=== PATIENT | female | born 1935 | race Caucasian/White ===

== ENCOUNTER 2018-01-02 20:22 | Emergency (ER) | payer OTHER ==
[~2018-01-02] VITALS: Ht 167.6 cm; Wt 90.7 kg
[~2018-01-02 20:22] MED LIST: ADULT LOW DOSE81 MG PO; ARIXTRA; ARIXTRA SQ; ASPIRIN325 PO; AZITHROMYCIN 2250 MG PO; BENADRYL25 MG PO; FLUZONE 2045 MCG/011; IRON; IRON PO; MOBIC15 MG PO; NORCO 5-325 TA1 EACH; OXYIR5 MG; PNEUMOVAX25 MCG/0.5; PREDNISONE 20 M20 M1 PO; SOF-LAX100 MG PO; VENTOLIN HFA INH8 GM IH
[2018-01-02] MEDS ORDERED: NASOCORT (20:37)
[2018-01-02] MEDS ORDERED: TUMS PO (20:37)
[2018-01-02] MEDS ORDERED: ASPIR 8181 MG PO (20:37)
[2018-01-02] MEDS ORDERED: FLEXERIL PO (21:31)
[2018-01-02] MEDS ORDERED: IBUPROFEN 800800 M1 PO (21:32)
[2018-01-02 21:46] VITALS: BP 158/74
== END 2018-01-02 21:47 | disposition home or self-care (01) ==
LOC: M.ERS 20:22
DX: S40.012A Contusion of left shoulder, initial encounter (principal); Z88.2 Allergy status to sulfonamides; Z88.8 Allergy status to other drugs, medicaments and biological substances; W10.9XXA Fall (on) (from) unspecified stairs and steps, initial encounter; Y93.89 Activity, other specified; Y92.89 Other specified places as the place of occurrence of the external cause; Y99.8 Other external cause status

== ENCOUNTER → 2018-11-26 | Outpatient (CLI) | payer OTHER ==
[~2018-11-26] MED LIST changes: +ASPIR 8181 MG PO; +FLEXERIL PO; +IBUPROFEN 800800 M1 PO; +NASOCORT; +TUMS PO
== END ==
LOC: M.LAB 12:54
DX: Z01.82 Encounter for allergy testing (principal); M16.11 Unilateral primary osteoarthritis, right hip

== ENCOUNTER 2019-05-19 06:12 | Inpatient (IN) | payer OTHER ==
[~2019-05-19] VITALS: Ht 165.1 cm; Wt 86.2 kg
[~2019-05-19 06:12] MED LIST changes: +CALCIUM 500 +1 EAC5 PO; +LISINOPRIL10 MG PO
[2019-05-19 07:13] VITALS: BP 143/70
[2019-05-19 13:24] VITALS: BP 121/52
[2019-05-19 16:00] VITALS: BP 130/69
--- NOTE | 2019-05-19 18:52 | NUR ---
PATIENT ARRIVED TO UNIT AT APPROX 1140. ALERT AND ORIENTED X4. ASSESSMENT COMPLETED AND CHARTED. VSS ON ROOM AIR. MINIMAL COMPLAINTS OF PAIN MANAGED WITH ORAL PAIN MEDICATION. FLUIDS AND ANTIBIOTICS INFUSED ORDERED. PATIENT UP WITH MINIMAL ASSIST TO BEDSIDE COMMODE, VOIDING WITHOUT ISSUE. PATIENT DOING VERY WELL GETTING UP AND LOOKING FORWARD TO GOING HOME TOMORROW. FALL PRECAUTIONS IN PLACE. CALL LIGHT WITHIN REACH AND USES APPROPRIATELY. HOURLY ROUNDS COMPLETED. WILL CONTINUE TO MONITOR.
[2019-05-19 20:14] VITALS: BP 143/59
[2019-05-20] VITALS: BP 126/41
[2019-05-20 04:00] VITALS: BP 124/46
[2019-05-20 05:14] LABS: ABSOLUTE LYMPHOCYTES 0.8 thou/uL (0.8-5.3); ABSOLUTE MONOCYTES 1.1 thou/uL (0.0-1.2); ABSOLUTE NEUTROPHILS 8.2 thou/uL (1.6-8.1); BASOPHILS 0.2 %; HEMATOCRIT 33.2 % (37.0-47.0); HEMOGLOBIN 11.6 gm/dL (12.0-15.0); LYMPHOCYTES 7.5 %; MCH 32.5 pg (26.0-34.0); MCHC 34.9 g/dL (28.0-37.0); MONOCYTES 11.2 %; MPV 9.1 fl. (7.2-11.1); NUCLEATED RBCS 0 /100WBC; PLATELET COUNT* 185 thou/uL (150-400); POLYS 81.1 %; RBC 3.57 mil/uL (4.20-5.00); RDW-CV 14.5 % (10.5-14.5); WBC 10.1 thou/uL (4.0-11.0)
[2019-05-20 05:34] LABS: CALCIUM 8.4 mg/dL (8.5-10.1); CREATININE 0.8 mg/dL (0.6-1.3); MAGNESIUM 1.5 mg/dL (1.8-2.4)
--- NOTE | 2019-05-20 05:39 | NUR ---
PATIENT WAS ABLE TO REST COMFORTABLY THROUGH NIGHT. SHE DID NOT WANT HER SCHEDULED TRAMADOL. FIRST DOSE OF OXYCODONE 5MG WAS NOT BRINGING HER PAIN DOWN SO GAVE HER 10MG AND SHE WAS THEN RATING HER PAIN 4/5 AFTER ASSESSMENT. NO WORSENING OF SYMPTOMS TO REPORT. SHE HAS HER DAUGHTER WITH HER SHE HELPED HER WITH GETTING UP TO BATHROOM.
[2019-05-20 07:10] VITALS: BP 102/46
[2019-05-20 16:00] VITALS: BP 109/44
--- NOTE | 2019-05-20 16:00 | NUR ---
PT.IN BED. ALERT AND ORIENTED. SHE SAID SHE LIVES WITH HER . HER DAUGHTER WILL ALSO BE STAYING WITH HER TO HELP. SHE HAS A WALKER. SHE HOPES TO DO OUTPT.THERAPY AT DISCHARGE. CALL IN TO OFFICE TO CLARIFY PRESCRIPTION FOR ELIQUIS. PT.SAID SHE IS NORMALLY INDEPENDENT. HPES TO GO HOME TOMORROW.
--- NOTE | 2019-05-20 17:32 | NUR ---
PT REMAINED ALERT AND ORIENTED. PT RESTING IN ROOM. FALL RISK PRECAUTIONS IN PLACE. PAIN MEDS GIVEN ORDERED. PT WILL HAVE PT AT 0730 IN AM. HOURLY ROUNDING COMPLETED. WILL CONTINUE TO MONITOR.
[2019-05-20 19:30] VITALS: BP 123/58
--- NOTE | 2019-05-20 21:54 | NUR ---
INITAL ASSESMENT COMPLETED AT 1930. PT RESTING QUIETLY IN BED AT THAT TIME. PT'S DAUGHTER AT BEDSIDE ASSISTING WITH CARE. CALL LIGHT IN REACH, PT USING APPROPRIATELY.
[2019-05-21 05:01] LABS: HEMATOCRIT 34.7 % (37.0-47.0); HEMOGLOBIN 11.7 gm/dL (12.0-15.0)
[2019-05-21 08:10] VITALS: BP 112/45
[2019-05-21] MEDS ORDERED: DOK PLUS TABLE1 EACH PO (10:39)
[2019-05-21] MEDS ORDERED: ELIQUIS5 MG PO (10:39)
[2019-05-21 12:45] VITALS: BP 112/45
--- NOTE | 2019-05-21 12:56 | NUR ---
PT.TO DISCHARGE HOME WITH SELF GUIDED CARE (NO P.T.) EXPLAINED THIS TO PT. SHE IS AGREEABLE TO NO HOME HEALTH. ELIQUIS PRESCRIPTION CALLED IN WRITTEN TO PT.'S PHARMACY [facility]. COPAY IS $21.98. INFORMED PT. SISTER WILL BE TRANSPORTING HER HOME.
[2019-05-21] MEDS ORDERED: NORCO 5-325 TA1 EAC1 PO (13:31)
[2019-05-21] MEDS ORDERED: OXYCODONE HCL 55 MG PO (13:32)
--- NOTE | 2019-05-21 17:18 | NUR ---
ASSUMED CARE OF PATIENT AT APPROX 0730. ALERT AND ORIENTED X4. ASSESSMENT COMPLETED AND CHARTED. VSS ON ROOM AIR. PAIN MANAGED WITH ORAL PAIN MEDICATION. PATIENT UP WITH GAIT BELT AND WALKER TO BATHROOM. WORKED WELL WITH THERAPIES TODAY AND PROGRESSED TOWARD GOALS. PATIENT DISCHARGED AT 1650 WITH ALL PERSONAL BELONGINGS, PRESCRIPTIONS AND DISCHARGE INFORMATION.
--- NOTE | 2019-05-26 10:59 | OP ---
[address] [address] OPERATIVE REPORT Name: ERICACOREY Room: [address] IN M.R.#: [id number] Admission: 05/19/19 Attend Phys: Shira Miller Discharge: 05/21/19 Date of : 39 Report #: [id number] THIS REPORT FOR: //name// CC: Rashawn Norton DATE OF SERVICE: 05/19/2019 PREOPERATIVE DIAGNOSIS: Degenerative joint disease of the right hip. POSTOPERATIVE DIAGNOSIS: Degenerative joint disease of the right hip. PROCEDURES: Right total hip arthroplasty utilizing the anterior supine intramuscular approach with Biomet Taperloc total hip system following components: A. A size 52 mm outside diameter porous coated limited whole G7 acetabular shell. B. A size 12 high offset porous coated Microplasty Taperloc femoral stem. C. A 36 mm ceramic head with a standard neck adapter. D. A high wall acetabular polyethylene liner. SURGEON: Rashawn Maldonado DO OIL PAINT SHADER: Alaina Maldonado DO SECOND NETWORK DESKTOP SUPPORT SPECIALIST: Karuna Ramirez APRN ANESTHESIA: General endotracheal anesthetic. ESTIMATED BLOOD LOSS: 150 mL. COMPLICATIONS: None. DRAINS: None. ANTIBIOTICS: Ancef 2 g IV piggyback. INDICATIONS FOR SURGERY: Gross pathology, surgeon's inspection of the hip revealed eburnated bone, the femoral head and the acetabulum with osteophytic lipping, subchondral sclerosis, normal appearing joint effusion, hypertrophic synovitis. SURGERY IN DETAIL: The patient was taken to the operating suite, placed on the operating table in supine position. She was given benefit of a general [facility] [address] [facility] [address] OPERATIVE REPORT Name: COREY MALDONADO TRAVIS Room: [address] M.R.#: [id number] Admission: 05/19/19 Attend Phys: Shira Miller Discharge: 05/21/19 Date of : 39 Report #: [id number] endotracheal anesthetic. Following this, the pelvis and bilateral lower extremities were sterilely prepped and draped with Hibiclens scrub followed by alcohol rinse and ChloraPrep scrub x 2 and draped free in usual sterile fashion. Surgery began with the pre-injection of the tissues with pain cocktail through each layer. The initial incision began 2 fingerbreadths distal, 2 fingerbreadths lateral to the ASIS of the right hip. This was carried down through skin and subcutaneous tissue and approximately 10 cm in length. This was carried down to the level of the tensor fascia. The tensor fascia muscle fascia was then split in line with the skin incision and muscles teased off the fascia medially and retracted laterally. Medial fascia was then split. Circumflex vessels were isolated and cauterized with Aquamantys and transected with electrocautery with good hemostasis being obtained. Next, the indirect head of the rectus was elevated off the anterior capsule and retracted with #9 retractor. Superior and inferior capsule were isolated, #5 and #7 retractors were placed symmetrically. The standard anterior capsulectomy was then performed. Femoral neck osteotomy was performed in the appropriate level as determined on preoperative templating and intraoperative evaluation. This was done in napkin ring fashion with an oscillating saw. Head and neck were removed. The capsule was then released off the proximal femur, inferiorly to the superior portion of the lesser trochanter and superiorly to the mid portion of the greater trochanter. I was able to bring the femur in a good workable position with a bone hook. I then placed the femur posterior to the acetabulum with retractors around the acetabulum for excellent visualization. Labrum was excised. Osteophytic lipping was removed with rongeur. Next, the acetabulum was reamed, beginning with a 47 mm reamer up to a 51 mm reamer with good punctate bleeding over 80% of acetabular floor and reaming appeared to be concentric on trialing. The final 52 mm outside diameter shell was then impacted in the prepared acetabulum until it was well seated in position. It was very stable, but further fixated with two 6.5 cancellous screws of appropriate length (25 mm, 35 mm). Next, a high wall liner was placed with the high wall being in position posteriorly and slightly inferiorly and was impacted and locked in position. The femur was then brought in good workable position. Box osteotome was used to open proximal femur and rat tail rasp was used to sound the canal. The femur was then broached up to a 12, which seemed to have excellent fit and fill. A trial reduction was then performed with standard and high offset necks with multiple neck lengths. The high offset reproduced the normal offset as determined on intraoperative evaluation and preoperative templating. The standard neck length brought the leg length equal to the other side, referencing the medial malleolus and the heel. I also checked size, positioning and length with the C-arm, which looked anatomic. The hip was then placed through full range of motion with knee to chest figure 4 cross body motion and full external rotation of the hip with knee in full extension without dislocation. This hip was dislocated and the final implants were placed. Thorough irrigation was carried out and final reduction was performed. Final x-rays were obtained. Deep tissue had been injected with pain cocktail. PRP was slowly sprayed in the hip and allowed to gel for 5 minutes. The tensor [facility] [address] [place] [address] OPERATIVE REPORT Name: COREY MALDONADO Room: [address] M.R.#: [id number] Admission: 05/19/19 Attend Phys: Shira Miller Discharge: 05/21/19 Date of : 39 Report #: [id number] fascia muscle fascia was then closed with #1 Vicryl suture in running locking stitch. Subcutaneous tissue was closed with 2-0 Vicryl suture in simple inverted interrupted fashion. Skin reapproximated with running subcuticular stitch of 3-0 Monocryl and Dermabond skin glue. Sterile dressing of Mepilex and thigh high DANIEL hose were applied. The patient tolerated the procedure well and was transferred to recovery room in stable condition. <ELECTRONICALLY SIGNED> By: Anthony Stephens DO 05/26/19 1059 0931 [id number] Maldonado DO /grey
== END 2019-05-21 16:50 | disposition home or self-care (01) | DRG 470 ==
LOC: M.TBA 06:12 → M.ORTHSURG 06:12 → M.PRE 06:25 → M.ORTHSURG 11:50 → M.PRE 12:13 → M.ORTHSURG 05-21 16:50
PROVIDERS: Family Medicine; Orthopaedic Surgery; ADMIT Internal Medicine
PROC: 0SR90JZ Replacement of Right Hip Joint with Synthetic Substitute, Open Approach (ICD-10-PCS; principal; 2019-05-19)
DX: M16.11 Unilateral primary osteoarthritis, right hip (principal); Z96.642 Presence of left artificial hip joint; Z96.653 Presence of artificial knee joint, bilateral; I10 Essential (primary) hypertension; E83.42 Hypomagnesemia; Z79.82 Long term (current) use of aspirin; Z88.8 Allergy status to other drugs, medicaments and biological substances; Z91.018 Allergy to other foods; Z90.49 Acquired absence of other specified parts of digestive tract; Z79.899 Other long term (current) drug therapy

== ENCOUNTER → 2019-05-26 | Outpatient (CLI) | payer OTHER ==
[~2019-05-26] MED LIST changes: +DOK PLUS TABLE1 EACH PO; +ELIQUIS5 MG PO; +NORCO 5-325 TA1 EAC1 PO; +OXYCODONE HCL 55 MG PO
== END ==
LOC: M.CT 15:00
DX: R06.00 Dyspnea, unspecified (principal); R21 Rash and other nonspecific skin eruption; I70.0 Atherosclerosis of aorta; N28.1 Cyst of kidney, acquired; I48.91 Unspecified atrial fibrillation; M85.88 Other specified disorders of bone density and structure, other site; I10 Essential (primary) hypertension; E78.5 Hyperlipidemia, unspecified; Z68.30 Body mass index [BMI] 30.0-30.9, adult

== ENCOUNTER 2020-10-20 13:10 | Emergency (ER) | payer OTHER ==
[~2020-10-20] VITALS: Ht 165.1 cm; Wt 83.9 kg
[2020-10-20] MEDS ORDERED: CHILDREN'S ASPI81 MG PO (13:41)
[2020-10-20] MEDS ORDERED: B12 ACTIVE1000 MCG PO (13:41)
[2020-10-20 14:08] LABS: ABSOLUTE BASOPHILS 0.1 thou/uL (0.0-0.2); ABSOLUTE EOSINOPHILS 0.6 thou/uL (0.0-0.7); ABSOLUTE LYMPHOCYTES 1.4 thou/uL (0.8-5.3); ABSOLUTE MONOCYTES 1.5 thou/uL (0.0-1.2); ABSOLUTE NEUTROPHILS 7.3 thou/uL (1.6-8.1); BASOPHILS 1.4 %; EOSINOPHILS 5.7 %; HEMATOCRIT 45.9 % (37.0-47.0); HEMOGLOBIN 15.5 gm/dL (12.0-15.0); LYMPHOCYTES 13.2 %; MCH 31.1 pg (26.0-34.0); MCHC 33.8 g/dL (28.0-37.0); MCV 91.9 fL (80.0-100.0); MONOCYTES 13.3 %; MPV 8.3 fl. (7.2-11.1); NUCLEATED RBCS 0 /100WBC; PLATELET COUNT* 264 thou/uL (150-400); POLYS 66.4 %; RDW-CV 14.5 % (10.5-14.5); WBC 10.9 thou/uL (4.0-11.0)
[2020-10-20 14:20] LABS: APTT 27.8 Seconds (25.0-31.3); PROTIME 10.7 Seconds (9.20-11.50)
[2020-10-20 14:47] LABS: CALCIUM 8.8 mg/dL (8.5-10.1); CREATININE 1.2 mg/dL (0.6-1.3); POTASSIUM 4.4 mmol/L (3.5-5.1)
[2020-10-20 14:58] LABS: ALBUMIN 3.3 g/dL (3.4-5.0); TOTAL BILIRUBIN 1.1 mg/dL (<0.1-1.0); TOTAL PROTEIN 6.9 g/dL (6.4-8.2)
[2020-10-20] MEDS ORDERED: ZPAK PO (14:58)
[2020-10-20] MEDS ORDERED: PREDNISONE 20 M20 M1 PO (14:58)
[2020-10-20] MEDS ORDERED: ZOFRAN ODT4 MG SUBLING (14:58)
[2020-10-20 15:25] VITALS: BP 125/48
--- NOTE | 2020-10-20 16:20 | EKG ---
[place] [address] ELECTROCARDIOGRAM REPORT Name: COREY MALDONADO Room: [facility]#: [id number] Admission: 10/20/20 Attend Phys: Discharge: 10/20/20 Date of : 39 Date of Service: 10/20/20 1343 Report #: [id number] THIS REPORT FOR: //name// [facility] ED Test Date: 2020-10-20 Test Time: 13:43:20 Pat Name: COREY MALDONADO Department: Room: Gender: F Coiler: : 1935 Requested By: Sarath Marlow Order Number: [id number] MD: Rashawn Charlton Measurements Intervals [place] Rate: 83 P: 84 [place]: 181 QRS: 49 QRSD: 94 T: 89 QT: 357 QTc: 420 Interpretive Statements Sinus rhythm Consider anterior infarct Compared to ECG 11/26/2014 23:37:15 Ventricular premature complex(es) no longer present Electronically Signed On 10-20-2020 16:19:59 EMERGENCY CARE TECH by Rashawn Charlton [email or web address] <ELECTRONICALLY SIGNED> By: Rashawn Charlton MD, [facility] 10/20/20 1619 1343 1343 Rashawn Charlton MD, [facility] /EPI
== END 2020-10-20 15:27 | disposition home or self-care (01) ==
LOC: M.ERS 13:10
PROVIDERS: Family Medicine
DX: U07.1 COVID-19 (principal); R53.1 Weakness; I10 Essential (primary) hypertension; R79.1 Abnormal coagulation profile; Z79.899 Other long term (current) drug therapy; Z88.2 Allergy status to sulfonamides; Z91.018 Allergy to other foods; Z88.8 Allergy status to other drugs, medicaments and biological substances

== ENCOUNTER 2020-10-21 10:06 | Inpatient (IN) | payer OTHER ==
[~2020-10-21] VITALS: Ht 165.1 cm; Wt 81.6 kg
[~2020-10-21 10:06] MED LIST changes: +B12 ACTIVE1000 MCG PO; +CHILDREN'S ASPI81 MG PO; +ZOFRAN ODT4 MG SUBLING; +ZPAK PO
[2020-10-21 10:17] VITALS: BP 160/63
[2020-10-21 10:33] LABS: HEMATOCRIT 39.4 % (37.0-47.0); MCH 31.2 pg (26.0-34.0); MCV 91.7 fL (80.0-100.0); MPV 8.3 fl. (7.2-11.1); NUCLEATED RBCS 0 /100WBC; PLATELET COUNT* 231 thou/uL (150-400); RDW-CV 13.9 % (10.5-14.5); WBC 10.1 thou/uL (4.0-11.0)
[2020-10-21 10:37] LABS: HEMOGLOBIN 13.4 gm/dL (12.0-15.0)
[2020-10-21 10:52] LABS: APTT 26.5 Seconds (25.0-31.3); PROTIME 10.4 Seconds (9.20-11.50)
[2020-10-21 11:20] LABS: CALCIUM 8.7 mg/dL (8.5-10.1); CREATININE 1.4 mg/dL (0.6-1.3)
[2020-10-21 11:22] LABS: ABSOLUTE LYMPHOCYTES 0.9 thou/uL (0.8-5.3); ABSOLUTE MONOCYTES 0.1 thou/uL (0.0-1.2); ABSOLUTE NEUTROPHILS 9.1 thou/uL (1.6-8.1); PLATELET ESTIMATE ADEQUATE
[2020-10-21 11:25] LABS: ALBUMIN 3.1 g/dL (3.4-5.0); TOTAL BILIRUBIN 0.3 mg/dL (<0.1-1.0); TOTAL PROTEIN 6.7 g/dL (6.4-8.2)
[2020-10-21 11:37] LABS: URINE BILIRUBIN NEGATIVE (Negative); URINE BLOOD NEGATIVE (Negative); URINE CLARITY CLEAR; URINE COLOR YELLOW; URINE GLUCOSE-RANDOM NEGATIVE (Negative); URINE KETONES NEGATIVE (Negative); URINE LEUKOCYTES-REFLEX TRACE (Negative); URINE NITRITE-REFLEX NEGATIVE (Negative); URINE PROTEIN NEGATIVE (Negative); URINE UROBILINOGEN 0.2 E.U./dl (0.2-1.0)
[2020-10-21 11:46] LABS: BACTERIA-REFLEX 1-9 Few /HPF (None Seen); SQUAMOUS 0-3 Few /LPF (0-3); URINE RBC 0-2 Rare /HPF (0-2); URINE WBC-REFLEX 0-5 Rare /HPF (0-5)
[2020-10-21 11:47] LABS: CASTS None Seen /LPF (None Seen); CRYSTALS None Seen /LPF (None Seen); MUCUS 0-3 Light strn/LPF (None Seen)
[2020-10-21 15:54] VITALS: BP 133/46
[2020-10-21 17:52] VITALS: BP 123/52
[2020-10-21 18:00] VITALS: BP 122/52
[2020-10-21 20:00] VITALS: BP 131/51
[2020-10-22 07:16] VITALS: BP 131/51
[2020-10-22 08:00] VITALS: BP 128/63
[2020-10-22 16:15] VITALS: BP 115/52
[2020-10-22 20:00] VITALS: BP 125/43
[2020-10-23 04:22] LABS: HEMATOCRIT 34.9 % (37.0-47.0); HEMOGLOBIN 12.1 gm/dL (12.0-15.0); MCH 31.6 pg (26.0-34.0); MCHC 34.5 g/dL (28.0-37.0); MCV 91.7 fL (80.0-100.0); MPV 8.1 fl. (7.2-11.1); NUCLEATED RBCS 0 /100WBC; PLATELET COUNT* 196 thou/uL (150-400); RBC 3.81 mil/uL (4.20-5.00); RDW-CV 13.8 % (10.5-14.5); WBC 5.8 thou/uL (4.0-11.0)
[2020-10-23 04:43] LABS: ALBUMIN 2.7 g/dL (3.4-5.0); CALCIUM 8.4 mg/dL (8.5-10.1); CREATININE 1.1 mg/dL (0.6-1.3); TOTAL BILIRUBIN 0.3 mg/dL (<0.1-1.0); TOTAL PROTEIN 5.7 g/dL (6.4-8.2)
[2020-10-23 08:04] LABS: ABSOLUTE EOSINOPHILS 0.8 thou/uL (0.0-0.7); ABSOLUTE MONOCYTES 0.5 thou/uL (0.0-1.2); ABSOLUTE NEUTROPHILS 3.5 thou/uL (1.6-8.1)
[2020-10-23 08:05] LABS: PLATELET ESTIMATE ADEQUATE
[2020-10-23 08:35] VITALS: BP 122/48
[2020-10-23 11:20] VITALS: BP 131/51
[2020-10-23 12:29] VITALS: BP 131/51
== END 2020-10-23 12:20 | disposition home or self-care (01) | DRG 641 ==
LOC: M.ERS 10:06 → M.TBA-ER 10:56 → M.3W 17:47
PROVIDERS: Emergency Medicine; Internal Medicine; ADMIT Internal Medicine; ATTEND Internal Medicine
DX: E86.0 Dehydration (principal); N17.9 Acute kidney failure, unspecified; E44.1 Mild protein-calorie malnutrition; R53.83 Other fatigue; N18.30 Chronic kidney disease, stage 3 unspecified; F03.90 Unspecified dementia, unspecified severity, without behavioral disturbance, psychotic disturbance, mood disturbance, and anxiety; I12.9 Hypertensive chronic kidney disease with stage 1 through stage 4 chronic kidney disease, or unspecified chronic kidney disease; T38.0X5A Adverse effect of glucocorticoids and synthetic analogues, initial encounter; Z96.653 Presence of artificial knee joint, bilateral; Z20.822 Contact with and (suspected) exposure to COVID-19; Z90.49 Acquired absence of other specified parts of digestive tract; Z79.82 Long term (current) use of aspirin; Z79.899 Other long term (current) drug therapy; Z88.2 Allergy status to sulfonamides; Z88.8 Allergy status to other drugs, medicaments and biological substances; Z91.018 Allergy to other foods; Z90.710 Acquired absence of both cervix and uterus; Y92.89 Other specified places as the place of occurrence of the external cause; R73.9 Hyperglycemia, unspecified